=== PATIENT | female | born 1975 | race Caucasian/White ===

== ENCOUNTER 2024-02-05 16:43 | Outpatient (CLI) | payer OTHER, SELFPAY ==
--- OUTSIDE RECORDS SUMMARY | 2024-02-05 16:46 | XMS_ITS | Continuity of Care Document ---
Author Organization [facility] Address [address] [place] [address] Phone Care Team Providers Care Didactic Instructor Name Role Phone NINOSKA Nino Primary Care Provider Dennys Jimenez Attending Provider Unavailable Care Teams Patient Care Team Team Status: Active Member Role Status Dates Margaret Nino PA-C Primary Care Provider Active Visit Care Team Team Status: Active Member Role Status Alisha Nino PA-C Primary Care Provider Active Start: November 24, 2023 Dennys Jimenez Attending Provider Active Start: 2023 Visit Care Team Team Status: Inactive Member Role Status Dates Margaret Nino PA-C Primary Care Provide r, Attending Provider, Referring Provider Active Start: January 11, 2024 End: January 11, 2024 Visit Care Team Team Status: Inactive Member Role Status Dates Margaret Nino PA-C Primary Care Provide r, Attending Provider, Referring Provider Active Start: January 11, 2024 End: January 11, 2024 Chief Complaint and Reason for Visit Chief Complaint Amb Documentation New Patient (PCP Only) LABS Reason for Visit Malignant melanoma Preventative health care Initial patient encounter Well adult exam Perimenopause Allergies, Adverse Reactions, Alerts No known allergies Social History Smoking Status Status Start Date End Date Date of Observa tion Unknown if ever smoked Octob 2023 2:13pm Observation Status Observation Response Date of Response number of children 2 January 11, 2024 2:13pm alcohol intake current January 10 2:13pm Additional Data Assigned Sex Female Family History Relationship Condition Age at Onset Recorded Date/T kelsey mother Bipolar disorder Unknown father Malignant neoplasm of prostate Unknown Problems Active Problems Medical Problem Onset Date Status Mass of right inguinal region Ac tive History of mammogram Active Skin cancer Active Multiple pigmented nevi Active Pelvic pain Active Dysplastic nevus Active Lentigines Active Malignant melanoma Active Active History of melanoma Active Atypical nevus Active History of surgery Active Medications Medication Status Dose Units Route Directions Qty Days St art Date End Date Instructions [place] 2-Ltf-Mfg-Fish Oil (Fish Oil) 300-1,000 mg capsule Active 1 CAP PO daily November 24, 2023 12:00am Multivitamin Active 1 TAB PO daily 2023 12:00am Mecobalamin (Vitamin B12) (B12 Active) 1,000 mcg tablet,chewabl e Active 1000 MCG PO daily November 24, 2023 12:00am Immunizations Immunization Event Date Not Given Reason Dose Number Vacuum Drier Tender Lot Number Vaccine Information Statement (VIS) Detail *Td Adult Unsp Formulation August 01, 2005 Relevant Diagnostic Tests and/or Laboratory Data Laboratory Results Test Date/Time Result Interpretation Reference Range Result Comment Performing Site White Blood Count January 11, 2024 4:00pm 10.14 K/mm3 4.0-11.0 [facility]EE[facility] [id number] [address] [facility] [address] Red Blood Count January 11, 2024 4:00pm 4.08 M/mm3 3.85-5.4 WEE[facility] 29300-67 [address] [facility] [address] Hemoglobin January 11, 2024 4:00pm 12.8 gm/dL 12.0-16.0 [facility] 39542-33 [address] [facility] [address] Hematocrit January 11, 2024 4:00pm 39.0 % 36.0-47 [facility] 45401-84 [address] [facility] [address] Mean Corpuscular Volume January 11, 2024 4:00pm 95.6 fl 82-98 [facility] 66532-15 [address] [facility] [address] Mean Corpuscular Hemoglobin January 11, 2024 4:00pm 31.4 pg 27-34 [facility] 23203-21 [address] [facility] [address] Mean Corpuscular Hemoglobin Concent January 11, 2024 4:00pm 32.8 g/dl 31.5-35.5 [facility]EE[facility] 13227-85 [address] [facility] [address] Red Cell Distribution Width January 11, 2024 4:00pm 12.3 % 11.0-15.0 [facility] 52580-11 [address] [facility] [address] Platelet Count January 11, 2024 4:00pm 289 K/uL 130-430 [facility] 65625-01 [address] [facility] [address] Mean Platelet Volume January 11, 2024 4:00pm 10.8 fL 8.0-12.5 [facility] 96508-02 [address] [facility] [address] Thyroid Stimulating Hormone (TSH) January 11, 2024 4:00pm 1.99 uIU/ml 0.32-5.6 [facility] 09906-12 [address] [facility] [address] Vitamin D 25-Hydroxy January 11, 2024 4:00pm 46.96 ng/mL 30-100 The recommendations for 25-OH Vitamin D Levels are: Deficient Less than 20 ng/mL Insufficient 20 - 29 ng/mL Sufficient 30 - 100 ng/mL Potential Intoxication Greater than 100 ng/mL [facility] 51226-22 [address] [facility] [address] Glucose Level January 11, 2024 4:00pm 72 mg/dL 70-100 [facility] 95447-46 [address] [facility] [address] Blood Urea Nitrogen January 11, 2024 4:00pm 18 mg/dL 7-25 [facility] 40310-15 [address] [facility] [address] Creatinine January 11, 2024 4:00pm 0.86 mg/dL 0.6-1.2 [facility]EE[facility] 52606-16 [address] [facility] [address] Estimat Glomerular Filtration Rate January 11, 2024 4:00pm 84 59-200 Normal Range: > 60 mL/min/1.73 square metersThis patient's estimated GFR was calculated using the 2020 CKD-EPI equation. Assessment of the estimated GFR is not appropriate when creatinine concentrations are rapidly changing. For clinical situations in which a more precise estimate of GFR is necessary, consider alternative methods of GFR estimation such as a 24-hour urine creatinine clearance. [facility] 02499-36 [address] [facility] [address] Sodium Level January 11, 2024 4:00pm 137 mmol/L 136-145 [facility] 98182-65 [address] [facility] [address] Potassium Level January 11, 2024 4:00pm 4.0 mmol/L 3.5-5.1 [facility]EE[facility] 16726-10 [address] [facility] [address] Chloride Level January 11, 2024 4:00pm 101 mmol/L 98-107 [facility] 37225-75 [address] [facility] [address] Carbon Dioxide Level January 11, 2024 4:00pm 30 mmol/L 21-31 [facility] 92779-73 [address] [facility] [address] Anion Gap January 11, 2024 4:00pm 10.0 8-16 [facility] 59572-82 [address] [facility] [address] Calcium Level January 11, 2024 4:00pm 9.2 mg/dL 8.6-10.3 [facility]EE[facility] 90293-42 [address] [facility] [address] Cholesterol Level January 11, 2024 4:00pm 178 mg/dL 0-199 [facility] 03926-06 [address] [facility] [address] HDL Cholesterol January 11, 2024 4:00pm 79 mg/dL 23-92 [facility] 85700-47 [address] [facility] [address] Triglycerides Level January 11, 2024 4:00pm 58 mg/dL 0-149 [facility] 74113-10 [address] [facility] [address] LDL Cholesterol, Calculated January 11, 2024 4:00pm 87 mg/dL 1-100 [facility] 77678-93 [address] [facility] [address] Cholesterol Ratio (LDL/HDL) January 11, 2024 4:00pm 1.10 LDL/HDL Ratio - Risk of CHD MALE FEMALE.......... .......LOW <1.0 <1.5............ .....AVERAGE 3.6 3.2............. ....MODERATE 6.3 5.0............. ....HIGH 8.0 6.1 WEEKS [facility] 03006-49 [address] [facility] [address] Cholesterol/HDL Ratio January 11, 2024 4:00pm 2.25 CHOL/HDL - Risk of CHD Male Female.......... ....LOW 3.4 3.3............. .AVERAGE 5.0 4.4............. .MODERATE 9.6 7.1............. .HIGH 23.4 11.0 WEEKS [facility] 56771-91 [address] [facility] [address] Total Protein January 11, 2024 4:00pm 7.1 gm/dL 6.0-8.3 [facility]EE[facility] 43050-71 [address] [facility] [address] Albumin January 11, 2024 4:00pm 4.5 gm/dL 3.5-5.7 [facility] 32725-37 [address] [facility] [address] Total Bilirubin January 11, 2024 4:00pm 0.7 mg/dL 0.3-1.0 [facility] 39806-01 [address] [facility] [address] Aspartate Amino Transf (AST/SGOT) January 11, 2024 4:00pm 22 IU/L 13-39 [facility] 81782-26 [address] [facility] [address] Alanine Aminotransferase (ALT/SGPT) January 11, 2024 4:00pm 18 U/L 7-52 [facility] 19267-78 [address] [facility] [address] Alkaline Phosphatase January 11, 2024 4:00pm 45 U/L 34-104 [facility] 55345-48 [address] [facility] [address] Neutrophils (%) (Auto) January 11, 2024 4:00pm 71.9 % [facility] 08567-48 [address] [facility] [address] Immature Granulocyte % (Auto) January 11, 2024 4:00pm 0.3 % [facility] 68715-23 [address] [facility] [address] Lymphocytes (%) (Auto) January 11, 2024 4:00pm 19.1 % [facility] 67997-32 [address] [facility] [address] Monocytes (%) (Auto) January 11, 2024 4:00pm 7.6 % [facility] 60423-38 [address] [facility] [address] Eosinophils (%) (Auto) January 11, 2024 4:00pm 0.5 % [facility] 45757-78 [address] [facility] [address] Basophils (%) (Auto) January 11, 2024 4:00pm 0.6 % [facility] 75230-09 [address] [facility] [address] Nucleated Red Blood Cells % (auto) January 11, 2024 4:00pm 0.0 % [facility] 01705-50 [address] [facility] [address] Neutrophils # (Auto) January 11, 2024 4:00pm 7.29 K/mm3 1.5-7.5 [facility]EE[facility] 54977-46 [address] [facility] [address] Immature Granulocyte # (Auto) January 11, 2024 4:00pm 0.03 K/mm3 0.0-0.5 [facility] 58589-44 [address] [facility] [address] Lymphocytes # (Auto) January 11, 2024 4:00pm 1.94 K/mm3 0.75-3.75 [facility] 01175-53 [address] [facility] [address] Monocytes # (Auto) January 11, 2024 4:00pm 0.77 K/mm3 0.25-1.0 [facility]EE[facility] 72171-79 [address] [facility] [address] Eosinophils # (Auto) January 11, 2024 4:00pm 0.05 K/mm3 0.0-0.5 [facility]EE[facility] 28964-93 [address] [facility] [address] Basophils # (Auto) January 11, 2024 4:00pm 0.06 K/mm3 0.0-0.1 [facility]EE[facility] 63615-02 [address] [facility] [address] Nucleated Red Blood Cells # January 11, 2024 4:00pm 0.000 K/mm3 0-0.012 WEE[facility] 24808-75 [address] [facility] [address] Vital Signs Vital Reading Result Reference Range Collection Date/Time Height 162.56 cm January 10 2:18pm Weight 51.25 kg January 10 024 2:18pm Body Temperature 98.5 [degF] 97.6-99.6 January 2:18pm Heart Rate 78 /min 60-100 January 10 024 2:18pm Oxygen saturation by Pulse oximetry 98 % 92-100 January 11, 2024 2 :18pm BP Systolic 110 mm[Hg] 90-130 January 10 024 2:18pm BP Diastolic 68 mm[Hg] 70-80 January 10 2 024 2:18pm BMI (Body Mass Index) 19.3 kg/m2 Octobe r 2023 2:18pm Advance Directives Advance Directive Response Recorded Date/ Time Advance Directives No January 11, 2024 2:13pm Insurance Providers Guarantor PATRICIA HARDY Address [address] [facility] [address] Contact Info. Home Phone: Payer Policy Id Coverage Id Subscriber's Name Subscriber Id Effective Date Expiration Date [facility] [id number] PATRICIA HARDY [id number] Encounters Encounter Location(s) Arrival/Admit Date Discharge/Depart Date Provider(s) Non-patient / Non-visit [facility] Nonvisit November 24, 2023 8:20am Dennys Jimenez Departed Physician/Prov ider Office Visit [facility] January 11, 2024 2:02pm January 11, 2024 3:17pm Margaret Nino PA-C Departed Referred [facility] January 11, 2024 2:55pm January 11, 2024 2:56pm Margaret Nino PA-C Recent Diagnosis Onset Date Malignant melanoma Preventative health care Initial patient encounter Well adult exam Perimenopause Assessments Diagnosis Onset Date Resolution Status Malignant melanoma noneactiv e Preventative health care non eactive Initial patient encounter no neactive Well adult exam noneactive Perimenopause noneactive Plan of Treatment Author Margaret Nino [facility] Authored January 11, 2024 3 :55pm - referral to [facility] OBGYN referral to Derm - return in 1 year - routine labs ordered. Future Tests Future scheduled test information is unavailable Pending Tests Test Name Ordered Date Scheduled Date January 11, 2024 2:40pm Future Visits Future appointment information is unavailable Referrals to Other Providers Reason for Referral Referral Start Date Provider Provider Contact Information Provider Address C43.9 - Malignant melanoma of skin, unspecified January 11, 2024 ILANA Julian Work Phone: [address] [place] [address] N95.1 - Menopausal and female climacteric states January 11, 2024 [facility] Work Phone: [address] [place] [address] [place] [address] Future Procedures Future procedure information is unavailable Future Medications Future medication information is unavailable Patient Instructions Patient instructions are unavailable
[2024-02-05 16:58] LABS: TSH (W/Ref FT4) 1.74 uIU/mL (0.36-3.74)
[2024-02-06 18:38] LABS: Estradiol 437 pg/mL (See Note)
== END 2024-02-05 16:44 | disposition home or self-care (01) ==
LOC: LBO 16:44
PROVIDERS: Visit Provider Obstetrics & Gynecology
DX: N92.6 Irregular menstruation, unspecified (principal)
CPT/HCPCS: 36415; 82670; 83001; 84443